=== PATIENT | male | born 1965 | race Caucasian/White ===

== ENCOUNTER → 2019-09-13 | Outpatient (CLI) | payer OTHER ==
--- NOTE | 2019-09-13 08:24 | MR ---
EXAMINATION TYPE: MR knee LT wo con DATE OF EXAM: 09/13/2019 COMPARISON: Outside left knee x-ray September 08, 2019 HISTORY: Left knee pain per order. Pain locking and swelling per patient. TECHNIQUE: Multiplanar, multisequence images of the knee is performed without IV contrast. FINDINGS: MEDIAL MENISCUS: Anterior and posterior horns are intact without tear. LATERAL MENISCUS: Anterior and posterior horns are intact without tear. CRUCIATE LIGAMENTS: The anterior and posterior cruciate ligaments are intact and unremarkable. COLLATERAL LIGAMENTS: The medial collateral ligament and lateral collateral ligament complex are inta ct and unremarkable. EXTENSOR MECHANISM: Visualized quadriceps and patellar tendons are intact. EFFUSION: No significant suprapatellar joint effusion. POPLITEAL CYST: No popliteal/shafer cyst. TRICOMPARTMENT SPACES: [id number] tricompartment joint space loss most prominent patellofemoral compartment where there is mild borderline moderate spurring. CARTILAGE: Chondromalacia patella with areas of fissuring or cartilaginous loss along the posterior p atellar pole. Some cartilaginous loss medial tibial femoral compartment is seen. No full thickness lo ss is present. BONE MARROW SIGNAL: Well-defined 6 mm focus of low T1 and T2 signal lateral aspect tibial plateau veronica r articulation with fibular head is thought to reflect subchondral cyst or other benign etiology. OTHER: No additional significant abnormality is appreciated. IMPRESSION: No meniscal or ligamentous tear is seen. [id number] tricompartment degenerative audra nges as detailed above.
== END | disposition home or self-care (01) ==
LOC: RADMRIMAIN 06:35
PROVIDERS: ATTEND Orthopaedic Surgery
DX: M17.12 Unilateral primary osteoarthritis, left knee (principal)

== ENCOUNTER → 2019-10-25 | Outpatient (CLI) | payer OTHER ==
[2019-10-25 11:43] LABS: Basophils # (A) 0.1 k/uL (0-0.2); Basophils % (A) 1 %; Eosinophils # (A) 0.3 k/uL (0-0.7); Eosinophils % (A) 5 %; HCT 43.6 % (39.0-53.0); HGB 14.9 gm/dL (13.0-17.5); Lymphocytes # (A) 1.7 k/uL (1.0-4.8); Lymphocytes % (A) 32 %; MCH 28.9 pg (25.0-35.0); MCHC 34.1 g/dL (31.0-37.0); MCV 84.8 fL (80.0-100.0); Mean Platelet Volume 7.7; Monocytes # (A) 0.3 k/uL (0-1.0); Monocytes % (A) 6 %; Neutrophils # (A) 2.9 k/uL (1.3-7.7); Neutrophils % (A) 54 %; Platelet Count 274 k/uL (150-450); RBC 5.15 m/uL (4.30-5.90); WBC 5.3 k/uL (3.8-10.6)
[2019-10-25 11:44] LABS: Potassium 4.4 mmol/L (3.5-5.1)
== END | disposition home or self-care (01) ==
LOC: LABWHC1 10:47
PROVIDERS: ATTEND Orthopaedic Surgery
DX: Z01.818 Encounter for other preprocedural examination (principal); Z01.812 Encounter for preprocedural laboratory examination; M23.92 Unspecified internal derangement of left knee
CPT/HCPCS: 36415; 80051; 85025; 93005

== ENCOUNTER → 2019-11-02 | Day surgery (SDC) | payer OTHER ==
[2019-10-29 08:49] VITALS: BMI 32.8
--- NOTE | 2019-11-01 10:04 | HP ---
HISTORY AND PHYSICAL CHIEF COMPLAINT: Left knee pain. 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 He had a giving way episode. He notes medial and anterior pain intermittently. He notes it gives out and swells on him. He has tried medications in addition to an injection with only partial temporary relief. He notes the pain limits his normal function and activities. PAST MEDICAL HISTORY: Significant for hypertension and hypothyroidism along with hypercholesterolemia. PAST SURGICAL HISTORY: Significant for appendectomy and cholecystectomy. CURRENT MEDICATIONS: Current medications include Synthroid, cholesterol medication, and antihypertensives. ALLERGIES: He denies drug allergies. FAMILY HISTORY: Significant for cancer. SOCIAL HISTORY: Negative for current tobacco or alcohol use. REVIEW OF SYSTEMS: Sixteen-point review of systems is reviewed and is noncontributory. PHYSICAL EXAMINATION: On examination, the patient is approximately 5 feet 11 inches, 235 pounds of endomorphic habitus. HEENT exam is nonfocal. Neck is supple. He has painless passive motion of his left hip. Straight leg raise is negative. Active motion of left knee is -10 to 120 degrees of flexion. He is tender about the medial joint line. Collaterals are stable, Neisha is negative, Karen's elicits medial pain. He has pain with patellofemoral compression. His distal neurovascular exam appears intact in the left lower extremity. MRI report 09/13/2019 of the left knee shows medial and patellofemoral compartment degenerative changes along with irregularity of the cartilage of the medial patellar facet and medial femoral condyle. IMPRESSION: 1. Internal derangement left knee, possible medial femoral condyle and patellar chondral injury. 2. Left knee moderate medial and patellofemoral compartment osteoarthrosis. RECOMMENDATIONS: I talked to the patient at length regarding his condition and treatment options. At this point, he continues to have persistent pain and mechanical symptoms despite conservative measures. After thorough discussion, he opts to proceed with surgery. We will plan to proceed with arthroscopic evaluation with possible medial femoral chondrectomy, patellar chondroplasty and possible microfracture of the medial femoral condyle. Risks and benefits were discussed at length in layman's terms. We will likely perform that as an outpatient procedure. MMODL / IJN: [id number] /
[~2019-11-02] MED LIST: DEXAMETHASONE SOD PHOSPHATE 10 MG/ML 1 ML VIAL IV ONE; EPINEPHrine (PF) 1 ML in SODIUM CHLORIDE 0.9% IRRIGATIO 3,000 ML IRRIGATION ONE; HYDROcodone/APAP 5-325MG 1 EACH TAB PO ONE; KETOROLAC 30 MG/ML 1 ML VIAL ONE; LACTATED RINGERS 1,000 ML IV ONE; LACTATED RINGERS 1,000 ML IV SCH; LIDOCAINE 1% (10MG/ML) FOR IV START INTRADERMA PRN; LIDOCAINE 1% INJ 10MG/ML (20 ML MDV) ONE; MIDAZOLAM 2 MG/2 ML VIAL IV PRN; MIDAZOLAM 2 MG/2 ML VIAL ONE; ONDANSETRON 4 MG/2 ML VIAL IVP ONE; PROPOFOL 10 MG/ML 20 ML VIAL IV ONE; SCOPOLAMINE 1.5MG/72HR PATCH TRANSDERM ONE; fentaNYL (PF) 50 MCG/ML 2 ML AMP ONE
--- NOTE | 2019-11-02 08:43 | P.OP ---
Date of Procedure: 11/02/19 Preoperative Diagnosis: Left knee internal derangement Postoperative Diagnosis: Left knee posterior medial meniscal tear/grade 3 chondral injury distal lateral portion medial femoral condyle Procedure(s) Performed: Left knee arthroscopic partial medial meniscectomy/medial femoral chondrectomy Anesthesia: ILYAA Surgeon: Calderon Shanks Estimated Blood Loss (ml): 10 Pathology: none sent Condition: stable Disposition: PACU Indications for Procedure: The patient's a 54-year-old male who presents with progressive left knee pain and mechanical symptoms despite conservative measures. A discussion of the risks and benefits of operative intervention versus continued conservative mayte sures with the patient. He opted to proceed with surgery. Operative risks to include infection, neurovascular injury, development of blood clots, possible incomplete resolution of symptoms, possible worsening symptoms and need for subsequent procedures was discussed. Informed consent was obtained. Operative Findings: As below Description of Procedure: The patient was brought to the operating room, and after induction of general anesthesia examined the left knee. Collaterals were stable, Neisha was negative, and posterior drawer was negative. The left lower extremity was prepped and draped in a normal fashion. A superior lateral portal was made through a 3 mm skin incision superior and lateral to the patella. This was used for outflow. A lateral portal was made through a 5 mm vertical skin incision lateral to the patella tendon above the joint line. Diagnostic arthroscopy was performed. On inspection of the medial compartment, and oblique tear involving the posterior horn medial meniscus was noted in the white-white junction. This was debrided back to stable base with straight baskets and a motorized shaver. A grade 3 chondral injury was noted involving the distal lateral portion medial femoral condyle. This loose chondral fragment debrided back to stable base with a motorized shaver. Diffuse grade 2 chondral changes were noted in the medial compartment. On inspection of the notch, the anterior cruciate ligament appeared to be intact. On inspection of the lateral compartment, no significant cartilage or meniscal pathology was noted. On inspection of the patellofemoral articulation, grade 2-3 chondral changes were noted diffusely involving the medial and lateral facet as well as the femoral trochlea. The gutters were clear debris. The knee was then thoroughly irrigated. The portals were closed with Steri-Strips. A sterile dressing was applied in addition to a compression stocking. The patient was awoken from general anesthesia and transferred to recovery room in good condition. Blood loss was estimated at 10 mL. No complications were incurred.
[2019-11-02 08:45] VITALS: TEMP 97
[2019-11-02] MEDS: HYDROmorphone 0.5 MG/0.5 ML SYRINGE IVP PRN ×5 (08:49→09:14)
[2019-11-02 12:16] VITALS: BP 132/82; PULSE 76; RESP 20
== END | disposition home or self-care (01) ==
LOC: OR 07:03
PROVIDERS: ATTEND Orthopaedic Surgery
DX: S83.242A Other tear of medial meniscus, current injury, left knee, initial encounter (principal); S89.82XA Other specified injuries of left lower leg, initial encounter; I10 Essential (primary) hypertension; E03.9 Hypothyroidism, unspecified; E78.00 Pure hypercholesterolemia, unspecified; Z90.49 Acquired absence of other specified parts of digestive tract; Z79.890 Hormone replacement therapy; Z79.899 Other long term (current) drug therapy; Z80.9 Family history of malignant neoplasm, unspecified; X58.XXXA Exposure to other specified factors, initial encounter
CPT/HCPCS: 29881; J2250; J1100; J0690; J2405; J0171; J2001; J3010; J1885; J2704; J1170